=== PATIENT | female | born 1985 | race Caucasian/White ===

== ENCOUNTER 2022-01-11 09:09 | Emergency (ER) | payer BC, OTHER ==
[~2022-01-11] VITALS: Ht 167.6 cm; Wt 119.4 kg
[2022-01-11] MEDS ORDERED: MULT1TAB7 PO (09:15)
[2022-01-11] MEDS ORDERED: MIRE1IUD IU (09:16)
[2022-01-11 11:58] VITALS: BP 135/78
== END 2022-01-11 12:00 | disposition home or self-care (01) ==
LOC: M ED 09:09
DX: I80.292 Phlebitis and thrombophlebitis of other deep vessels of left lower extremity (principal); Z98.84 Bariatric surgery status

== ENCOUNTER 2025-09-02 06:26 | Emergency (ER) | payer BC, OTHER ==
[~2025-09-02] VITALS: Ht 167.6 cm; Wt 98.2 kg
[~2025-09-02 06:26] MED LIST: MIRE1IUD IU; MULT1TAB7 PO
[2025-09-02] MEDS ORDERED: MECL-86 PO (06:34)
[2025-09-02] MEDS ORDERED: SEMA2PEN (06:34)
[2025-09-02 06:55] LABS: PLATELET COUNT, AUTOMATED 311 10^3/uL (150-450)
[2025-09-02 07:17] LABS: CALCIUM LEVEL 9.0 MG/DL (8.5-10.1); CARBON DIOXIDE LEVEL 24.0 MMOL/L (20-31); CHLORIDE LEVEL 104.0 MMOL/L (98-107); CREATININE FOR GFR 1.0 MG/DL (0.55-1.30); GLOMERULAR FILTRATION RATE 72.1 (>58); POTASSIUM SERUM 3.8 MMOL/L (3.5-5.1); SODIUM LEVEL 137.0 MMOL/L (136-145)
[2025-09-02] MEDS ORDERED: ISOVUE-370 76% 100 ML VIAL As Ordered ONE (07:40)
[2025-09-02] MEDS ORDERED: MECL-209 PO (08:45)
[2025-09-02] MEDS ORDERED: ONDA-282 PO (08:45)
[2025-09-02 08:59] VITALS: BP 128/78; TEMP 98.2; O2SAT 100
== END 2025-09-02 09:01 | disposition home or self-care (01) ==
LOC: M ED 06:26
DX: H81.11 Benign paroxysmal vertigo, right ear (principal); E78.5 Hyperlipidemia, unspecified; F41.9 Anxiety disorder, unspecified; F32.A Depression, unspecified; Z86.73 Personal history of transient ischemic attack (TIA), and cerebral infarction without residual deficits; Z79.4 Long term (current) use of insulin; Z79.899 Other long term (current) drug therapy
CPT/HCPCS: 36415; 70450; 70496; 70498; 80048; 85027; 93005; 99284; Q9967